=== PATIENT | female | born 1950 ===

== ENCOUNTER 2023-02-22 06:00 | Day surgery (SDC) | payer OTHER ==
[~2023-02-22 06:00] MED LIST: CHILDREN'S ASPI81 MG PO; COZAAR25 MG PO; CRESTOR10 MG PO; LEVOTHYROXINE25 MCG PO
[2023-02-22] MEDS ORDERED: TRAM1TAB98 PO (10:17)
[2023-02-22] MEDS ORDERED: MACROBID 100 M100 MG PO (10:18)
== END 2023-02-22 13:20 | disposition home or self-care (01) ==
LOC: CIR.AMB 06:00
PROVIDERS: ATTEND Obstetrics & Gynecology Gynecology
DX: N81.11 Cystocele, midline (principal); N81.6 Rectocele; N81.5 Vaginal enterocele; Z20.822 Contact with and (suspected) exposure to COVID-19; I10 Essential (primary) hypertension

== ENCOUNTER 2024-01-31 06:30 | Day surgery (SDC) | payer OTHER ==
[2024-01-23 15:27] VITALS: BP 160/80
[~2024-01-31] VITALS: Ht 162.6 cm; Wt 62.1 kg
[~2024-01-31 06:30] MED LIST changes: +MACROBID 100 M100 MG PO; +TRAM1TAB98 PO
[2024-01-31] MEDS ORDERED: CEFAZOLIN SODIUM 1,000 MG VIAL IV ONE (12:45)
[2024-01-31] MEDS ORDERED: VANCOMYCIN HCL 1,000 MG VIAL IR ONE (12:45)
[2024-01-31] MEDS ORDERED: TRAM1TAB98 PO (13:33)
[2024-01-31] MEDS ORDERED: MACROBID 100 M100 MG PO (13:33)
[2024-01-31] MEDS ORDERED: MORPHINE SULFATE 4 MG/ML VIAL IV ONE ×2 (13:55)
== END 2024-01-31 17:50 | disposition home or self-care (01) ==
LOC: CIR.AMB 06:30
PROVIDERS: ATTEND Obstetrics & Gynecology Gynecology
DX: N81.11 Cystocele, midline (principal); N81.6 Rectocele; N81.5 Vaginal enterocele; E03.9 Hypothyroidism, unspecified; I10 Essential (primary) hypertension; E78.00 Pure hypercholesterolemia, unspecified